=== PATIENT | male | born 1995 | race Caucasian/White ===

== ENCOUNTER 2019-11-22 17:50 | Emergency (ER) | payer OTHER, SELFPAY ==
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
[2019-11-22 20:54] VITALS: BP 146/71; TEMP 99; O2SAT 100
== END 2019-11-22 19:54 | disposition home or self-care (01) ==
LOC: ER 17:50
DX: R51 Headache (principal); V49.49XA Driver injured in collision with other motor vehicles in traffic accident, initial encounter
CPT/HCPCS: 70450; 72125; 99283

== ENCOUNTER 2023-06-20 14:48 | Emergency (ER) | payer OTHER, SELFPAY ==
[2023-06-20] MEDS ORDERED: IBUPROFEN 200 MG TAB PO ONE (16:14)
[2023-06-20] MEDS ORDERED: IBUPROFEN 400 MG TAB ONE (16:14)
--- NOTE | 2023-06-20 16:15 | RAD REPORT ---
EXAM DESCRIPTION: CT - Head Brain Wo Cont - 06/20/2023 3:31 pm CLINICAL HISTORY: Headache COMPARISON: none TECHNIQUE: Computed axial tomography of the head was obtained. IV contrast was not requested. All CT scans are performed using dose optimization technique as appropriate and may include automated exposure control or mA/KV adjustment according to patient size. FINDINGS: An intracranial bleed is not seen The ventricles are normal in caliber No significant hypodense areas within the brain visualized No extra-axial fluid collection is noted. Fluid within the sinuses/ mastoids is not seen IMPRESSION: No acute intracranial abnormality is seen If patient's symptoms persist MRI of the brain would be recommended
--- NOTE | 2023-06-20 16:17 | RAD REPORT ---
EXAM DESCRIPTION: RAD - Wrist Left 3 View - 06/20/2023 3:41 pm CLINICAL HISTORY: Left wrist pain status post injury FINDINGS: No fracture or dislocation is seen. If the patient continues to have symptoms to suggest an occult fracture then a followup plain film se donte in 7 days would be recommended
--- NOTE | 2023-06-20 16:17 | RAD REPORT ---
EXAM DESCRIPTION: RAD - Clavicle Right - 06/20/2023 3:41 pm CLINICAL HISTORY: Shoulder pain FINDINGS: No fracture or dislocation seen
--- NOTE | 2023-06-20 16:40 | EDPHYS ---
Physician Documentation [facility] Name: Samuel Muñiz Age: 28 yrs Sex: Male : 1995 Arrival Date: 06/20/2023 Time: 14:48 Bed 13 Private MD: ED Physician Morris Walker HPI: 06/20 15:18 This 28 yrs old Male presents to ER via Ambulatory with complaints of Collar Bone Pain. ms3 15:18 28-year-old male with past medical history of elevated liver enzymes presents status ms3 post fall yesterday. Patient states he was playing with his dog when he tripped and hit the corner of a wall and passed out. Patient states he is having left temporal pain associated with headache. Patient states he is having left wrist pain and right clavicle pain. Patient rates his pain a 6/10 and states the pain is worse with movement. Patient denies alleviating factors. Historical: - Allergies: 15:09 PENICILLINS; hb - Home Meds: 15:09 None [Active]; hb - PMHx: 15:09 Elevated Liver Enzyme; hb - PSHx: 15:09 Right foot; hb - Immunization history:: Adult Immunizations up to date. - Social history:: Smoking status: Patient reports the use of cigarette tobacco products, denies chronic smoking, but will smoke occasionally. ROS: 15:18 Constitutional: Negative for fever, and chills. Neck: Negative for injury, pain, and ms3 swelling, Cardiovascular: Negative for chest pain, and palpitations. Respiratory: Negative for shortness of breath, cough, wheezing, and pleuritic chest pain, Abdomen/GI: Negative for abdominal pain, nausea, vomiting, diarrhea, and constipation, MS/Extremity: Negative for injury and deformity, Skin: Negative for injury, rash, and discoloration. 15:18 MS/extremity: Positive for pain, of the Left wrist, right clavicle, right alevism. 15:18 All other systems are negative. Exam: 15:18 Constitutional: This is a well developed, well nourished patient who is awake, alert, ms3 and in no acute distress. Head/Face: Normocephalic, atraumatic. Neck: Trachea midline, no cervical lymphadenopathy. Supple, full range of motion without nuchal rigidity, or vertebral point tenderness. No Meningismus. Chest/axilla: Normal chest wall appearance and motion. Nontender with no deformity. Cardiovascular: Regular rate and rhythm with a normal S1 and S2. No gallops, murmurs, or rubs. Normal PMI, no JVD. No pulse deficits. Respiratory: Lungs have equal breath sounds bilaterally, clear to auscultation and percussion. No rales, rhonchi or wheezes noted. No increased work of breathing, no retractions or nasal flaring. Abdomen/GI: Soft, non-tender, with normal bowel sounds. No distension or tympany. No guarding or rebound. No evidence of tenderness throughout. Skin: Warm, dry with normal turgor. Normal color with no rashes, no lesions, and no evidence of cellulitis. 15:18 Musculoskeletal/extremity: Extremities: noted in the Left wrist: decreased ROM, swelling, tenderness, noted in the Right clavicle: ecchymosis, pain. Vital Signs: 15:07 BP 141 / 82; Pulse 77; Resp 16; Temp 97.9; Pulse Ox 100% on R/A; Weight 82.55 kg; hb Height 5 ft. 11 in. ; Pain 7/10; 16:58 BP 121 / 87; Pulse 95; Resp 16; Pulse Ox 100% on R/A; Pain 0/10; me1 15:07 Body Mass Index 25.38 (82.55 kg, 180.34 cm) hb 15:07 Pain Scale: Adult hb 16:58 Pain Scale: Adult me1 MDM: 15:13 Patient medically screened. ms3 15:18 Differential Diagnosis Clavicle fracture vs wrist fracture vs sprain/ strain vs ICH. ms3 16:41 Data reviewed: vital signs, nurses notes, lab test result(s), and as a result, I will ms3 discharge patient. Independent interpretation of the following test(s) in the Emergency Department X-Ray: My interpretation is CT Head images reviewed by me do not show ICH.. Care significantly affected by the following Social Determinants of Health: Poor access to healthcare and/or lack of insurance. Counseling: I had a detailed discussion with the patient and/or guardian regarding: the historical points, exam findings, and any diagnostic results supporting the discharge/admit diagnosis, radiology results, the need for outpatient follow up, to return to the emergency department if symptoms worsen or persist or if there are any questions or concerns that arise at home. Special discussion: I discussed with the patient/guardian in detail that at this point there is no indication for admission to the hospital. It is understood, however, that if the symptoms persist or worsen the patient needs to return immediately for re-evaluation. ED course: Discussed radiographs not revealing fracture, or intracranial abnormality. Patient to follow-up with Dr. Lange in 2 to 3 days. Patient understands agrees with plan. All questions were answered. Return precautions discussed include worsening symptoms, or any other concerns. On reevaluation patient is alert and oriented x4, no apparent distress, nontoxic-appearing, ambulatory in emergency primary, speaking full sentences. 06/20 15:17 Order name: CT Head Brain wo Cont; Complete Time: 16:34 ms3 06/20 15:17 Order name: Clavicle Right XRAY; Complete Time: 16:34 ms3 06/20 15:17 Order name: Wrist Left (3 View) XRAY; Complete Time: 16:34 ms3 Administered Medications: 16:08 Not Given (Patient Refused): Ibuprofen PO 600 mg PO once me1 Disposition Summary: 06/20/23 16:39 Discharge Ordered Location: Home ms3 Condition: Stable ms3 Diagnosis - Clavicle pain ms3 - Chest wall contusion ms3 - Pain in left wrist ms3 - Headache ms3 Followup: ms3 - With: David Lange MD - When: 2 - 3 days - Reason: Recheck today's complaints Discharge Instructions: - Discharge Summary Sheet ms3 - Contusion ms3 - General Headache Without Cause ms3 - Fall Prevention in the Home, Adult ms3 Forms: - Medication Reconciliation Form ms3 - Thank You Letter ms3 - Antibiotic Education ms3 - Prescription Opioid Use ms3 - Patient Portal Instructions ms3 Signatures: Dispatcher [employer] Mayra Johnson RN RN hb Sims, Marcus, DO DO ms3 Ysabel Zayas RN me1
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
[2023-06-20] MEDS ORDERED: DERMABOND SKIN ADHESIVE TOP ONE (17:05)
[2023-06-20 17:28] VITALS: TEMP 97.9; O2SAT 100
[2023-06-20 17:29] VITALS: BP 121/87
== END 2023-06-20 17:22 | disposition home or self-care (01) ==
LOC: ER 14:48
DX: M25.511 Pain in right shoulder (principal); S20.219A Contusion of unspecified front wall of thorax, initial encounter; M25.532 Pain in left wrist; R51.9 Headache, unspecified
CPT/HCPCS: 70450; 99282

== ENCOUNTER 2023-08-05 17:03 | Emergency (ER) | payer OTHER, SELFPAY ==
[2023-08-05] MEDS ORDERED: KETOROLAC 30 MG/ML INJ ONE (17:31)
[2023-08-05] MEDS ORDERED: DIAZEPAM 5 MG TABLET ONE (17:31)
[2023-08-05] MEDS ORDERED: TDAP (DIPHTH,PERTUSS(ACELL),TET VAC) 0.5 ML VIAL IMVAC ONE (17:32)
--- OUTSIDE RECORDS SUMMARY | 2023-08-05 17:50 | XMS REPORT | Continuity of Care Document ---
:1995 Author Organization [facility] t Address [address] [place] [address] Care Team Providers Name Role Phone MERY GARCIA Attending Clinician Unavailable [employer] Attending Clinician Unavailabl e Problems This patient has no known problems. Allergies, Adverse Reactions, Alerts This patient has no known allergies or adverse reactions. Medications This patient has no known medications. Procedures This patient has no known procedures. Encounters Start End Encounter Admission Attending Care Care Encounter Source Date/Time Date/Time Type Type Clinicians Facility Department ID 2023-06-20 2023-06-20 Outpatient [facility] [id number] Dandy 14:01:24 14:01:24 0728 Clinton Briseno 2023-04-09 2023-04-09 Outpatient VANITA GARCIA [id number] Vanita 16:00:00 16:00:00 MERY roper 2023-04-08 2023-04-08 VANITA Schmidt [id number] Vanita 00:00:00 00:00:00 VANITA roper Results This patient has no known results.
--- NOTE | 2023-08-05 18:03 | RAD REPORT ---
EXAM DESCRIPTION: RAD - Shoulder Left 2 View - 08/05/2023 5:57 pm CLINICAL HISTORY: Pain;Smash injury COMPARISON: No comparisons TECHNIQUE: Internal and external rotation views of the left shoulder were obtained. FINDINGS: There is no fracture or dislocation. AC joint is normal in appearance. No acute or suspici ous findings. IMPRESSION: Negative two-view left shoulder examination.
[2023-08-05] MEDS ORDERED: MORPHINE 4 MG/ML SYR ONE (18:44)
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
[2023-08-05 20:09] VITALS: BP 127/84; TEMP 98.6; O2SAT 100
== END 2023-08-05 19:46 | disposition home or self-care (01) ==
LOC: ER 17:03
DX: S42.022A Displaced fracture of shaft of left clavicle, initial encounter for closed fracture (principal); V18.0XXA Pedal cycle driver injured in noncollision transport accident in nontraffic accident, initial encounter; Z88.0 Allergy status to penicillin
CPT/HCPCS: 96372; 99284

== ENCOUNTER → 2023-12-02 | Emergency (ER) | payer OTHER ==
--- NOTE | 2023-12-02 17:16 | ER ---
Nurse's Notes [facility] Beti Name: Samuel Muñiz Age: 28 yrs Sex: Male : 1995 Arrival Date: 12/02/2023 Time: 16:22 Bed DIS3 Private MD: Diagnosis: Other mechanical complication of infusion catheter, initial encounter Presentation: 12/02 16:31 Chief complaint: Patient states: RUE PICC line became clogged today. Coronavirus ll1 screen: Client denies travel out of the [place] in the last 14 days. At this time, the client does not indicate any symptoms associated with coronavirus-19. Ebola Screen: Patient denies travel to an Ebola-affected area in the 21 days before illness onset. Initial Sepsis Screen: Does the patient meet any 2 criteria? No. Patient's initial sepsis screen is negative. Does the patient have a suspected source of infection? No. Patient's initial sepsis screen is negative. Risk Assessment: Do you want to hurt yourself or someone else? Patient reports no desire to harm self or others. Onset of symptoms was December 02, 2023. 16:31 Method Of Arrival: Ambulatory ll1 16:31 Acuity: MARIELY 4 ll1 Triage Assessment: 16:30 General: Appears in no apparent distress. Behavior is calm, cooperative, appropriate iw for age. Pain: Denies pain. Musculoskeletal: Circulation, motion, and sensation intact. Capillary refill < 3 seconds, Reports RUE PICC line clogged. Historical: - Allergies: 16:30 PENICILLINS; ll1 - PMHx: 16:30 Elevated Liver Enzyme; ll1 - PSHx: 16:30 right foot; L clavicle SX (right foot); ll1 - Immunization history:: Adult Immunizations up to date. - Social history:: Smoking status: Patient denies any tobacco usage or history of. Assessment: 17:03 Reassessment: No changes from previously documented assessment. Patient and/or family iw updated on plan of care and expected duration. Pain level reassessed. Extension piece taken off RUE PICC. Sight flushed with 10 ml NS, positive blood return. New cap placed. Flushed again with [address] Bettencourt informed. Vital Signs: 16:31 BP 157 / 100; Pulse 120; Resp 16; Temp 97.2; Pulse Ox 100% on R/A; ll1 ED Course: 16:25 Patient arrived in ED. mg5 16:30 Chhaya Bettencourt MD is Attending Physician. gb1 16:32 Triage completed. ll1 16:32 Arm band placed on. ll1 17:52 Louise Sanchez, RN is Primary Nurse. iw Administered Medications: No medications were administered Outcome: 17:16 Discharge ordered by . gb1 17:52 Patient left the ED. iw Signatures: Louise Sanchez RN RN Herlinda Nogueira RN RN [facility] Shane Penelope mg5 Chhaya Bettencourt MD MD gb1
--- NOTE | 2023-12-02 17:53 | EDPHYS ---
Physician Documentation [facility] Name: Samuel Muñiz Age: 28 yrs Sex: Male : 1995 Arrival Date: 12/02/2023 Time: 16:22 Bed DIS3 Private MD: ED Physician Chhaya Bettencourt HPI: 12/02 17:35 This 28 yrs old Male presents to ER via Ambulatory with complaints of Pic gb1 Line Problem. 17:35 28-year-old male with a right upper extremity PICC line has not been flushing. He did gb1 not get his antibiotics today with the PICC line due to not flushing. He is requesting a dressing change as well. He denies any swelling in his right upper extremity or any chest pain or shortness of breath.. Historical: - Allergies: 16:30 PENICILLINS; ll1 - PMHx: 16:30 Elevated Liver Enzyme; ll1 - PSHx: 16:30 right foot; L clavicle SX (right foot); ll1 - Immunization history:: Adult Immunizations up to date. - Social history:: Smoking status: Patient denies any tobacco usage or history of. ROS: 17:35 MS/extremity: Positive for Right upper extremity central midline not flushing., gb1 17:35 All other systems are negative, gb1 Exam: 17:35 Constitutional: This is a well developed, well nourished patient who is awake, alert, gb1 and in no acute distress. Head/Face: Normocephalic, atraumatic. Eyes: Pupils equal round and reactive to light, extra-ocular motions intact. Lids and lashes normal. Conjunctiva and sclera are non-icteric and not injected. Cornea within normal limits. Periorbital areas with no swelling, redness, or edema. ENT: Nares patent. No nasal discharge, no septal abnormalities noted. Tympanic membranes are normal and external auditory canals are clear. Oropharynx with no redness, swelling, or masses, exudates, or evidence of obstruction, uvula midline. Mucous membranes moist. Neck: Trachea midline, no thyromegaly or masses palpated, and no cervical lymphadenopathy. Supple, full range of motion without nuchal rigidity, or vertebral point tenderness. No Meningismus. Chest/axilla: Normal chest wall appearance and motion. Nontender with no deformity. No lesions are appreciated. Cardiovascular: Regular rate and rhythm with a normal S1 and S2. No gallops, murmurs, or rubs. Normal PMI, no JVD. No pulse deficits. Respiratory: Lungs have equal breath sounds bilaterally, clear to auscultation and percussion. No rales, rhonchi or wheezes noted. No increased work of breathing, no retractions or nasal flaring. Abdomen/GI: Soft, non-tender, with normal bowel sounds. No distension or tympany. No guarding or rebound. No evidence of tenderness throughout. Back: No spinal tenderness. No costovertebral tenderness. Full range of motion. 17:35 Musculoskeletal/extremity: Extremities: IV was central midline in place no erythema or fluctuance or induration. No sign of regular extremity swelling., Vital Signs: 16:31 BP 157 / 100; Pulse 120; Resp 16; Temp 97.2; Pulse Ox 100% on R/A; ll1 MDM: 16:30 Patient medically screened. 1 17:35 Differential diagnosis: PICC line occluded, right upper extremity DVT or superficial gb1 thrombophlebitis. Data reviewed: vital signs, nurses notes. 17:37 ED course: Patient's right upper extremity PICC line was heparinized by the bedside RN nyasia and now it is currently working and flowing normally. Patient tolerated this without any complications.. Administered Medications: No medications were administered Disposition: 17:37 Chart complete. gb1 Disposition Summary: 12/02/23 17:16 Discharge Ordered Notes: Location: Home gb1 Problem: new gb1 Symptoms: are resolved gb1 Condition: Stable gb1 Diagnosis - Other mechanical complication of infusion catheter, initial encounter gb1 Followup: gb1 - With: Private Physician - When: - Reason: Re-evaluation by your physician Discharge Instructions: - Discharge Summary Sheet gb1 - PICC Home Care Guide gb1 Forms: - Medication Reconciliation Form gb1 - Thank You Letter gb1 - Antibiotic Education gb1 - Prescription Opioid Use gb1 - Patient Portal Instructions gb1 - Leadership Thank You Letter gb1 Signatures: Herlinda Rosen, RN RN ll1 Chhaya Bettencourt MD MD gb1
[2023-12-02 20:31] VITALS: BP 157/100; TEMP 97.2; O2SAT 100
== END ==
LOC: ER 16:22
DX: T82.594A Other mechanical complication of infusion catheter, initial encounter (principal); Z88.0 Allergy status to penicillin
CPT/HCPCS: 99281

== ENCOUNTER 2023-12-16 05:07 | Observation (INO) | payer OTHER ==
[2023-12-16] MEDS ORDERED: NA CHLORIDE 0.9% 1,000 ML ONE ×2 (06:17→07:29)
[2023-12-16] MEDS ORDERED: NA CHLORIDE 0.9% 100 ML ONE (06:18)
[2023-12-16] MEDS ORDERED: CEFAZOLIN SODIUM 2 GM/VIAL ONE (06:18)
--- NOTE | 2023-12-16 06:38 | ER ---
Nurse's Notes [facility] Name: Samuel Muñiz Age: 28 yrs Sex: Male : 1995 Arrival Date: 12/16/2023 Time: 05:07 Bed 5 Private MD: Diagnosis: Right PICC line occlusion, left shoulder osteomyelitis, daily antibiotic therapy, complication of the right PICC line Presentation: 12/16 05:34 Chief complaint: Patient states: needs PICC line flushed, wants wound check to left pf1 clavicle region with dressing change and dressing change to PICC line. Patient stated is currently been treated for osteomyelitis for 4 weeks of cefazolin and Rifampin. 05:34 Coronavirus screen: Vaccine status: Patient reports receiving the 2nd dose of the covid pf1 vaccine. Client denies travel out of the [place] in the last 14 days. At this time, the client does not indicate any symptoms associated with coronavirus-19. Ebola Screen: Patient negative for fever greater than or equal to 101.5 degrees Fahrenheit, and additional compatible Ebola Virus Disease symptoms. Initial Sepsis Screen: Does the patient meet any 2 criteria? HR > 90 bpm. No. Patient's initial sepsis screen is negative. Does the patient have a suspected source of infection? Yes: Bone or joint infection. Risk Assessment: Do you want to hurt yourself or someone else? Patient reports no desire to harm self or others. 05:34 Method Of Arrival: Ambulatory pf1 05:34 Acuity: MARIELY 3 pf1 Historical: - Allergies: 06:01 PENICILLINS; pf1 - PMHx: 06:01 Elevated Liver Enzyme; pf1 - PSHx: 06:01 L clavicle SX (fo); right foot; pf1 - Immunization history:: Adult Immunizations up to date, Client reports receiving the 2nd dose of the Covid vaccine, J\T\J and Moderna Last tetanus immunization: < 5 years ago Flu vaccine is not up to date. - Social history:: Smoking status: Reported history of juuling and/or vaping. Patient/guardian denies using alcohol, street drugs. Screenin:01 [facility] ED Fall Risk Assessment (Adult) History of falling in the last 3 months, jj7 including since admission No falls in past 3 months (0 pts) Confusion or Disorientation No (0 pts) Intoxicated or Sedated No (0 pts) Impaired Gait No (0 pts) Mobility Assist Device Used No (0 pt) Altered Elimination No (0 pt) Score/Fall Risk Level 0 - 2 = Low Risk Oriented to surroundings, Maintained a safe environment, Educated pt \T\ family on fall prevention, incl call for assistance when getting out of bed. Abuse screen: Denies threats or abuse. Nutritional screening: No deficits noted. Tuberculosis screening: No symptoms or risk factors identified. Assessment: 06:01 General: Appears in no apparent distress. comfortable, Behavior is calm, cooperative, jj7 appropriate for age. Pain: Denies pain. 07:00 General: Appears in no apparent distress. comfortable, Behavior is calm, cooperative, kc6 appropriate for age. Pain: Denies pain. Neuro: Level of Consciousness is awake, alert, obeys commands, Oriented to person, place, time, situation, Appropriate for age. Cardiovascular: Capillary refill < 3 seconds. Respiratory: Airway is patent Trachea midline Respiratory effort is even, unlabored, Respiratory pattern is regular, symmetrical. GI: No signs and/or symptoms were reported involving the gastrointestinal system. : No signs and/or symptoms were reported regarding the genitourinary system. EENT: No signs and/or symptoms were reported regarding the EENT system. Derm: No signs and/or symptoms reported regarding the dermatologic system. Skin is intact, is healthy with good turgor, Skin is pink, warm \T\ dry. Musculoskeletal: No signs and/or symptoms reported regarding the musculoskeletal system. Circulation, motion, and sensation intact. Capillary refill < 3 seconds, Range of motion: intact in all extremities. 08:00 Reassessment: Patient appears in no apparent distress at this time. No changes from kc6 previously documented assessment. Patient and/or family updated on plan of care and expected duration. Pain level reassessed. Patient is alert, oriented x 3, equal unlabored respirations, skin warm/dry/pink. 09:00 Reassessment: Patient appears in no apparent distress at this time. No changes from kc6 previously documented assessment. Patient and/or family updated on plan of care and expected duration. Pain level reassessed. Patient is alert, oriented x 3, equal unlabored respirations, skin warm/dry/pink. 11:29 Reassessment: Attempted to call report, no nurse assigned to room, told that they would ph call back. 11:53 Reassessment: Report called to Natalie PAZ. ph Vital Signs: 05:34 BP 139 / 88; Pulse 119; Resp 18; Temp 98.4; Pulse Ox 98% on R/A; Weight 81.65 kg; pf1 Height 5 ft. 7 in. ; Pain 2/10; 06:46 BP 134 / 80; Pulse 86; Resp 17; Pulse Ox 97% ; jj7 09:13 BP 110 / 56; Pulse 73; Resp 16 S; Pulse Ox 97% on R/A; kc6 05:34 Body Mass Index 28.19 (81.65 kg, 170.18 cm) pf1 05:34 Pain Scale: Adult pf1 ED Course: 05:14 Patient arrived in ED. jj6 05:45 Ralph Wall MD is Attending Physician. sp4 06:01 Triage completed. pf1 06:01 No provider procedures requiring assistance completed. Accessed PICC line. Clean \T\ dry. jj7 Dressing intact. site appears swollen. No blood return. Difficult to flush. ASSESSED BY DR GARCIA. 06:01 Patient has correct armband on for positive identification. Bed in low position. Call jj7 light in reach. Side rails up X 1. 06:10 Inserted saline lock: 20 gauge in right antecubital area, using aseptic technique. jj7 Blood collected. 06:23 XRAY Chest (1 view) In Process Unspecified. EDMS 06:25 Lactate w/ 2H reflex if indic. Sent. jj7 06:25 Blood Culture Adult (2) Sent. jj7 06:25 Basic Metabolic Panel Sent. jj7 06:25 CBC with Diff Sent. jj7 06:25 LFT's Sent. jj7 06:25 Magnesium Sent. jj7 06:25 NT PRO-BNP Sent. jj7 06:25 PT-INR Sent. jj7 06:26 Troponin HS Sent. jj7 06:36 Andrea Jolley is Hospitalizing Provider. sp4 07:00 Arm band placed on. kc6 07:00 Report received from JACKSON GLEASON. kc6 07:00 Client placed on continuous cardiac and pulse oximetry monitoring. NIBP monitoring kc6 applied. 07:22 Krys Bailon, RN is Primary Nurse. ph 09:13 Patient admitted, IV remains in place. kc6 Administered Medications: 06:25 Drug: ceFAZolin IVPB 2 grams IVPB once over 30 mins; (mix in 100 mL NS) Route: IVPB; jj7 Infused Over: 30 mins; Site: right antecubital; 07:00 Follow up: Response: No adverse reaction; IV Status: Completed infusion; IV Intake: kc6 100ml 06:25 Drug: NS 0.9% IV 1000 ml IV at 1 bolus Per protocol; 1000 mL bolus Route: IV; Rate: 1 jj7 bolus; Site: right antecubital; 07:00 Follow up: Response: No adverse reaction; IV Status: Completed infusion; IV Intake: kc6 1000ml 08:03 Drug: NS 0.9% IV 1000 ml IV at 125 ml/hr continuous Route: IV; Rate: 125 ml/hr; Site: kc right antecubital; 09:14 Follow up: Response: No adverse reaction; IV Status: Infusion continued upon admission kc6 Medication: 06:01 VIS not applicable for this client. jj7 Intake: 07:00 IV: 100ml; Total: 100ml. kc6 07:00 IV: 1000ml; Total: 1100ml. kc6 Outcome: 06:37 Decision to Hospitalize by Provider. sp4 09:13 Admitted to ER Hold. Please see [facility] for further documentation. kc6 09:13 Condition: good 09:13 Instructed on the need for admit, 12:07 Patient left the ED. kc6 Signatures: Dispatcher [employer] EDKrys Green RN RN Amada Key jj6 Linette Russell RN RN kc6 Lluvia Greenwood RN RN jj7 Jaclyn Gupta RN RN pf1 Ralph Wall MD MD sp4
--- NOTE | 2023-12-16 06:38 | EDPHYS ---
Physician Documentation [facility] Name: Samuel Muñiz Age: 28 yrs Sex: Male : 1995 Arrival Date: 12/16/2023 Time: 05:07 Bed 5 Private MD: ED Physician Ralph Wall HPI: 12/16 05:45 This 28 yrs old Male presents to ER via Unassigned with complaints of PIC sp4 LINE PROBLEM. 06:33 28-year-old male with history of left shoulder osteomyelitis on cefazolin 2 g IV daily, sp4 via PICC line on the right arm presents with occluded the right PICC line that he is not able to flush at home. Patient states he has missed 3 doses of his IV cefazolin. Patient also takes p.o. rifampin. Patient is here for evaluation of occluded PICC line. . Historical: - Allergies: 06:01 PENICILLINS; pf1 - PMHx: 06:01 Elevated Liver Enzyme; pf1 - PSHx: 06:01 L clavicle SX (fo); right foot; pf1 - Immunization history:: Adult Immunizations up to date, Client reports receiving the 2nd dose of the Covid vaccine, J\T\J and Moderna Last tetanus immunization: < 5 years ago Flu vaccine is not up to date. - Social history:: Smoking status: Reported history of juuling and/or vaping. Patient/guardian denies using alcohol, street drugs. ROS: 06:37 Constitutional: Negative for fever, chills, and weight loss, positive for right PICC sp4 line occlusion 06:37 All other systems are negative, Exam: 06:37 Constitutional: This is a well developed, well nourished patient who is awake, alert, sp4 and in no acute distress. Head/Face: Normocephalic, atraumatic. Eyes: Pupils equal round and reactive to light, extra-ocular motions intact. Lids and lashes normal. Conjunctiva and sclera are not injected. Cornea within normal limits. Periorbital areas with no swelling, redness, or edema. ENT: Nares patent. No nasal discharge, no septal abnormalities noted. Tympanic membranes are normal and external auditory canals are clear. Oropharynx with no redness, swelling, or masses, exudates, or evidence of obstruction, uvula midline. Mucous membranes moist. Neck: Trachea midline, no thyromegaly or masses palpated, and no cervical lymphadenopathy. Supple, full range of motion without nuchal rigidity, or vertebral point tenderness. Chest/axilla: Normal chest wall appearance and motion. Nontender with no deformity. No lesions are appreciated. Cardiovascular: Regular rate and rhythm with a normal S1 and S2. No gallops, murmurs, or rubs. Normal PMI, no JVD. No pulse deficits. Positive right arm PICC line, Respiratory: Lungs have equal breath sounds bilaterally, clear to auscultation and percussion. No rales, rhonchi or wheezes noted. No increased work of breathing, no retractions or nasal flaring. Abdomen/GI: Soft, non-tender, with normal bowel sounds. No distension or tympany. No guarding or rebound. No evidence of tenderness throughout. Back: No spinal tenderness. No costovertebral tenderness. Skin: Warm, dry with normal turgor. Normal color with no rashes, no lesions, and no evidence of cellulitis. MS/ Extremity: Pulses equal, no cyanosis. Neurovascular intact. Full, normal range of motion. Neuro: Awake and alert, GCS 15, oriented to person, place, time, and situation. Cranial nerves II-XII grossly intact. Motor strength 5/5 in all extremities. Sensory grossly intact. Psych: Awake, alert, with orientation to person, place and time. Behavior, mood, and affect are within normal limits Vital Signs: 05:34 BP 139 / 88; Pulse 119; Resp 18; Temp 98.4; Pulse Ox 98% on R/A; Weight 81.65 kg; pf1 Height 5 ft. 7 in. ; Pain 2/10; 06:46 BP 134 / 80; Pulse 86; Resp 17; Pulse Ox 97% ; jj7 09:13 BP 110 / 56; Pulse 73; Resp 16 S; Pulse Ox 97% on R/A; kc6 05:34 Body Mass Index 28.19 (81.65 kg, 170.18 cm) pf1 05:34 Pain Scale: Adult pf1 MDM: 05:46 Patient medically screened. sp4 06:37 Differential diagnosis: vascular injury, Vascular catheter complication. Data reviewed: sp4 vital signs, nurses notes, old medical records, lab test result(s), radiologic studies, plain films. Consideration of Admission/Observation Patient was admitted/placed on observation. Escalation of care including admission/observation considered. Management of patient was discussed with the following: Hospitalist: Hospitalist admission team. ED course: I have attempted to flush PICC line and it appears PICC line is clotted and occluded. PICC line does not pull back blood and does not flush, and the patient should be admitted for PICC line replacement. Ancef 2 g IV ordered. Hospitalist team accepted patient for admission for PICC line replacement. . 12/16 05:46 Order name: Basic Metabolic Panel; Complete Time: 07:03 sp4 12/16 05:46 Order name: CBC with Diff; Complete Time: 07:03 sp4 12/16 05:46 Order name: LFT's; Complete Time: 07:03 sp4 12/16 05:46 Order name: Magnesium; Complete Time: 07:03 4 12/16 05:46 Order name: NT PRO-BNP; Complete Time: 07:03 sp4 12/16 05:46 Order name: PT-INR; Complete Time: 07:03 sp4 12/16 05:46 Order name: Troponin HS; Complete Time: 07:03 sp4 12/16 05:46 Order name: Blood Culture Adult (2) 4 12/16 05:46 Order name: Lactate w/ 2H reflex if indic.; Complete Time: 07:03 4 12/16 05:46 Order name: XRAY Chest (1 view) 4 12/16 05:46 Order name: IV Saline Lock; Complete Time: 06:25 sp4 12/16 05:46 Order name: Labs collected and sent; Complete Time: 06:25 sp4 12/16 05:46 Order name: O2 Per Protocol; Complete Time: 06:02 sp4 12/16 05:46 Order name: O2 Sat Monitoring; Complete Time: 06:02 4 Administered Medications: 06:25 Drug: ceFAZolin IVPB 2 grams IVPB once over 30 mins; (mix in 100 mL NS) Route: IVPB; jj7 Infused Over: 30 mins; Site: right antecubital; 07:00 Follow up: Response: No adverse reaction; IV Status: Completed infusion; IV Intake: kc6 100ml 06:25 Drug: NS 0.9% IV 1000 ml IV at 1 bolus Per protocol; 1000 mL bolus Route: IV; Rate: 1 jj7 bolus; Site: right antecubital; 07:00 Follow up: Response: No adverse reaction; IV Status: Completed infusion; IV Intake: kc6 1000ml 08:03 Drug: NS 0.9% IV 1000 ml IV at 125 ml/hr continuous Route: IV; Rate: 125 ml/hr; Site: kc6 right antecubital; 09:14 Follow up: Response: No adverse reaction; IV Status: Infusion continued upon admission kc6 Disposition Summary: 12/16/23 06:37 Hospitalization Ordered Notes: Hospitalization Status: Observation sp4 Provider: Andrea Jolley sp4 Condition: Stable sp4 Problem: new sp4 Symptoms: are unchanged sp4 Bed/Room Type: Standard sp4 Location: Telemetry/MedSurg (observation)(12/16/23 10:56) bd Room Assignment: [facility](12/16/23 10:56) bd Diagnosis - Right PICC line occlusion, left shoulder osteomyelitis, daily antibiotic therapy, sp4 complication of the right PICC line Forms: - Medication Reconciliation Form sp4 - SBAR form sp4 - Leadership Thank You Letter sp4 Signatures: Dispatcher [employer] EDMS Silvia Carlisle Kaitlyn RN RN kc6 Clover Almeida RN RN kb3 Lluvia Greenwood RN RN jj7 Jaclyn Gupta RN RN pf1 Ralph Wall MD MD sp4 Corrections: (The following items were deleted from the chart) 07:56 06:37 Telemetry/MedSurg (observation) sp4 kb3 07:56 06:37 sp4 kb3 10:56 07:56 [facility] ER HOLD kb3 bd 10:56 07:56 ERHOLD- kb3 bd
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
[2023-12-16 06:55] LABS: Absolute Lymphocytes (CBC) 2.1 K/uL (0.7-4.9); Hematocrit 38.2 % (39.6-49.0); Lymphocytes % 29.2 % (15.3-44.8); MCV 87.9 fL (80-100); MPV 7.2 fL (7.6-11.3); Platelets 323 thou/uL (152-406); RBC Red Blood Cell Count 4.35 M/uL (4.33-5.43)
[2023-12-16 06:58] LABS: Protime INR 1.19
[2023-12-16 06:59] LABS: ALT/SGPT 18 U/L (16-61); AST/SGOT 24 U/L (15-37); Albumin 3.8 g/dL (3.4-5.0); Alkaline Phosphatase 111 U/L (45-117); BUN Blood Urea Nitrogen 19 mg/dL (7-18); Bicarbonate 28 mEq/L (21-32); Bilirubin Total 0.3 mg/dL (0.2-1.0); Glomerular Filtration Rate 100 ml/min (=/>90); Glucose Level 91 mg/dL (74-106); NT PRO-BNP 11 pg/mL (<125); Potassium 3.8 mEq/L (3.5-5.1); Protein, Total 7.8 g/dL (6.4-8.2); Sodium Level 138 mEq/L (136-145); Troponin High Sensitivity 4.7 pg/mL (<58.9)
[2023-12-16 07:00] LABS: Bilirubin Direct < 0.1 mg/dL (0-0.2); Bilirubin Indirect, Calculated ND mg/dL (0.2-0.8)
--- NOTE | 2023-12-16 07:52 | RAD REPORT ---
EXAM DESCRIPTION: RAD - Chest Single View - 12/16/2023 6:21 am CLINICAL HISTORY: check PICC line position COMPARISON: No comparisons FINDINGS: Lines: PICC tip overlying the proximal SVC. Lungs: No evidence of edema or pneumonia. Pleural: No significant pleural effusions or pneumothorax. Cardiac: The heart size is within normal limits. Mediastinum: Within normal limits. Bones: No acute fractures. Plate and screw at the left clavicle. Other: None IMPRESSION: No acute cardiopulmonary disease. PICC tip overlies the proximal SVC.
[2023-12-16] MEDS ORDERED: CODEINE 30MG/APAP 300MG TAB PO PRN (10:38)
[2023-12-16] MEDS ORDERED: Mupirocin NASAL 2 APPL/1 GM TUBE NAS SCH (10:38)
[2023-12-16 11:41] VITALS: BMI 28.1
[2023-12-16] MEDS ORDERED: CEFAZOLIN SODIUM 2 GM in NA CHLORIDE 0.9% 100 ML IVPB SCH (12:00)
[2023-12-16] MEDS ORDERED: ALTEPLASE 2 MG/VIAL IV SCH (13:00)
[2023-12-16 13:51] VITALS: O2SAT 97
[2023-12-16 16:14] VITALS: BP 108/64; TEMP 97.8
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
--- NOTE | 2023-12-16 16:26 | RAD REPORT ---
EXAM DESCRIPTION: RAD - Chest Single View - 12/16/2023 4:19 pm CLINICAL HISTORY: confirm placement of PICC COMPARISON: Chest Single View dated 12/16/2023 FINDINGS: Portable chest was obtained following placement of a left upper extremity PICC line. The c atheter tip projects over the SVC. There is a right-sided PICC line also present with its tip in the SVC.
== END 2023-12-16 18:36 | disposition home health service (06) ==
LOC: ER 05:07 → ERHOLD 06:45 → 2ND 11:53
PROVIDERS: ADMIT Hospitalist; ATTEND Hospitalist
PROC: 05HC33Z Insertion of Infusion Device into Left Basilic Vein, Percutaneous Approach (ICD-10-PCS; principal; 2023-12-16)
DX: M86.9 Osteomyelitis, unspecified (principal); T82.898A Other specified complication of vascular prosthetic devices, implants and grafts, initial encounter; M25.512 Pain in left shoulder; Z79.2 Long term (current) use of antibiotics; Z88.0 Allergy status to penicillin
CPT/HCPCS: 96365; 96361; 87040 ×2; 85025; 80048; 36415; 83735; 85610; 80076; 83605; 84484; 83880; 71045 ×2; 99285; 36569; J7030 ×2; G0378 ×3; J2997

== ENCOUNTER → 2023-12-29 | Emergency (ER) | payer OTHER ==
--- NOTE | 2023-12-29 18:21 | RAD REPORT ---
EXAM DESCRIPTION: US - UPPER EXTREMITY VENOUS UNILATE - 12/29/2023 5:56 pm CLINICAL HISTORY: Pain COMPARISON: None. TECHNIQUE: Real-time sonographic evaluation of the left upper extremity deep venous system was perfo rmed. FINDINGS: Normal compressibility, flow augmentation, phasic flow and spontaneous flow is identified in the left upper extremity deep venous system. No intraluminal filling defects seen. IMPRESSION: No DVT in the left upper extremity.
--- NOTE | 2023-12-29 18:24 | EDPHYS ---
Physician Documentation [facility] Name: Samuel Muñiz Age: 28 yrs Sex: Male : 1995 Arrival Date: 12/29/2023 Time: 16:54 Bed DX3 Private MD: ED Physician Morris Walker HPI: 12/29 17:11 This 28 yrs old Male presents to ER via EMS with complaints of Arm Pain. kb 17:11 Pt is a 28 year old male who presents for pain in left forearm that started today. kb States he has been giving himself cefazolin infusions through a picc line in left upper arm and completed the last dose today. States it flushed fine after the infusion, but he started having pain in forearm shortly after so he was concerned about a blood clot. States he was working on making an appt to have the picc line removed, but was told to just come to the ER to have it removed. . Historical: - Allergies: 17:04 PENICILLINS; ko1 - PMHx: 17:04 Elevated Liver Enzyme; ko1 - PSHx: 17:04 L clavicle SX; right foot; ko1 - Immunization history:: Adult Immunizations up to date. - Social history:: Smoking status: Patient denies any tobacco usage or history of. ROS: 17:10 Constitutional: Negative for fever, chills, and weight loss, kb 17:10 MS/extremity: Positive for pain, of the left forearm, 17:10 All other systems are negative, Exam: 17:10 Constitutional: This is a well developed, well nourished patient who is awake, alert, kb and in no acute distress. Head/Face: Normocephalic, atraumatic. ENT: Moist Mucous membranes Cardiovascular: Regular rate Respiratory: Respirations even and unlabored. No increased work of breathing. Talking in full sentences Skin: Warm, dry with normal turgor. Normal color. Neuro: Awake and alert, GCS 15, oriented to person, place, time, and situation. Moves all extremities. Normal gait. 17:10 Musculoskeletal/extremity: Extremities: grossly normal except: noted in the left forearm: pain, noted in the left bicep: PICC line in place without erythema, swelling or warmth, ROM: intact in all extremities, Circulation is intact in all extremities. Sensation intact. Vital Signs: 16:59 BP 151 / 84; Pulse 98; Resp 16; Temp 98.7; Pulse Ox 99% ; ko1 MDM: 16:57 Patient medically screened. kb 17:11 Data reviewed: vital signs, nurses notes. kb 18:23 Differential diagnosis: tendonitis, dvt, cellulitis. Counseling: I had a detailed kb discussion with the patient and/or guardian regarding the historical points, exam findings, and any diagnostic results supporting the discharge/admit diagnosis, radiology results, the need for outpatient follow up, a family practitioner, to return to the emergency department if symptoms worsen or persist or if there are any questions or concerns that arise at home. 18:23 Historians other than the Patient: EMS: [facility]. kb 12/29 17:09 Order name: UPPER EXTREMITY VENOUS UNILATE; Complete Time: 18:22 EDMS 12/29 17:04 Order name: Misc. Order: remove picc line; Complete Time: 17:14 kb Administered Medications: No medications were administered Disposition: 17:12 I was immediately available on-site in the Emergency Department for consultation in the ms3 care of the patient. Disposition Summary: 12/29/23 18:24 Discharge Ordered Notes: Location: Home kb Condition: Stable kb Diagnosis - Pain in left arm kb Followup: kb - With: Private Physician - When: 2 - 3 days - Reason: Recheck today's complaints, Continuance of care, Re-evaluation by your physician Followup: kb - With: Emergency Department - When: As needed - Reason: Worsening of condition Discharge Instructions: - Discharge Summary Sheet kb - Musculoskeletal Pain kb Forms: - Medication Reconciliation Form kb - Thank You Letter kb - Antibiotic Education kb - Prescription Opioid Use kb - Patient Portal Instructions kb - Leadership Thank You Letter kb Signatures: Dispatcher [employer] EDMS Keely James, LICHA-C SOURCING COORDINATOR-Morris Benson DO DO ms3 Enriqueta Mishra, JACKSON RN ko1 Corrections: (The following items were deleted from the chart) 17:09 17:04 Extremity Venous Uni [id number] ordered. EDID EDMS
--- NOTE | 2023-12-29 18:24 | ER ---
Nurse's Notes [facility] Name: Samuel Muñiz Age: 28 yrs Sex: Male : 1995 Arrival Date: 12/29/2023 Time: 16:54 Bed DX3 Private MD: Diagnosis: Pain in left arm Presentation: 12/29 16:59 Chief complaint: EMS states: patient called ems for left arm pain below PICC line ko1 access. Coronavirus screen: At this time, the client does not indicate any symptoms associated with coronavirus-19. Ebola Screen: No symptoms or risks identified at this time. Initial Sepsis Screen: Does the patient meet any 2 criteria? No. Patient's initial sepsis screen is negative. Does the patient have a suspected source of infection? No. Patient's initial sepsis screen is negative. Risk Assessment: Do you want to hurt yourself or someone else? Patient reports no desire to harm self or others. Onset of symptoms is unknown. 16:59 Method Of Arrival: EMS: [facility] ko1 16:59 Acuity: MARIELY 3 ko1 Triage Assessment: 17:04 General: Appears in no apparent distress. Behavior is calm, cooperative, appropriate ko1 for age. Pain: Complains of pain in dorsal aspect of left forearm. Historical: - Allergies: 17:04 PENICILLINS; ko1 - PMHx: 17:04 Elevated Liver Enzyme; ko1 - PSHx: 17:04 L clavicle SX; right foot; ko1 - Immunization history:: Adult Immunizations up to date. - Social history:: Smoking status: Patient denies any tobacco usage or history of. Screenin:14 [facility] ED Fall Risk Assessment (Adult) Score/Fall Risk Level 0 - 2 = Low Risk. Abuse as6 screen: Denies threats or abuse. Denies injuries from another. Nutritional screening: No deficits noted. Tuberculosis screening: No symptoms or risk factors identified. Assessment: 17:14 General: PICC line to left upper arm removed. tip intact . as6 Vital Signs: 16:59 BP 151 / 84; Pulse 98; Resp 16; Temp 98.7; Pulse Ox 99% ; ko1 ED Course: 16:57 Patient arrived in ED. rg4 16:57 Keely James FNP-C is PHCP. kb 16:57 Morris Walker DO is Attending Physician. kb 17:04 Triage completed. ko1 17:04 Arm band placed on right wrist. Patient placed in waiting room, Patient notified of ko1 wait time. 17:14 Young Tillman, RN is Primary Nurse. as6 17:15 Bed in low position. Call light in reach. as6 17:58 UPPER EXTREMITY VENOUS UNILATE In Process Unspecified. EDMS 18:24 Provided Education on: follow up. as6 18:24 No provider procedures requiring assistance completed. Patient did not have IV access as6 during this emergency room visit. Administered Medications: No medications were administered Medication: 17:15 VIS not applicable for this client. as6 Outcome: 18:24 Discharge ordered by MD. kb 18:25 Discharged to home ambulatory, ap3 18:25 Condition: good 18:25 Discharge instructions given to patient, Instructed on discharge instructions, follow up and referral plans. Demonstrated understanding of instructions, follow-up care, 18:25 Patient left the ED. ap3 Signatures: Dispatcher [employer] EDMS Keely James, CONTAINERS SALES REPRESENTATIVE-C LICHA-Jessica Noyola rg4 Perri Casey RN RN ap3 Young Tillman, RN RN as6 Enriqueta Mishra, RN RN ko1
[2023-12-30 11:17] VITALS: BP 151/84; TEMP 98.7; O2SAT 99
== END ==
LOC: ER 16:54
DX: M79.602 Pain in left arm (principal); Z88.0 Allergy status to penicillin
CPT/HCPCS: 93971